=== PATIENT | female | born 1955 | race Caucasian/White ===

== ENCOUNTER 2019-04-24 08:04 | Emergency (ER) | payer OTHER ==
[~2019-04-24] VITALS: Ht 157.5 cm; Wt 122.5 kg
[2019-04-24] MEDS ORDERED: CARTIA XT240 MG PO (08:23)
[2019-04-24] MEDS ORDERED: GLIPIZIDE5 MG PO (08:23)
[2019-04-24] MEDS ORDERED: HYDROCHLOROTHIA25 MG PO (08:24)
[2019-04-24] MEDS ORDERED: LOSARTAN POTAS100 MG PO (08:24)
[2019-04-24] MEDS ORDERED: METFORMIN HCL500 M1 PO (08:24)
[2019-04-24] MEDS ORDERED: PROMETHAZINE HC25 M1 PO (10:50)
[2019-04-24] MEDS ORDERED: NORCO 10-325 T1 EACH PO (10:50)
[2019-04-24] MEDS ORDERED: CIPRO500 MG PO (10:50)
== END 2019-04-24 11:29 | disposition home or self-care (01) ==
LOC: ED 08:04
DX: N13.2 Hydronephrosis with renal and ureteral calculous obstruction (principal); N32.2 Vesical fistula, not elsewhere classified; K80.20 Calculus of gallbladder without cholecystitis without obstruction; I10 Essential (primary) hypertension; E11.9 Type 2 diabetes mellitus without complications; Z79.899 Other long term (current) drug therapy; Z79.84 Long term (current) use of oral hypoglycemic drugs
CPT/HCPCS: 74177; 80053; 81001; 85025; 96361; 99284-25; J1885; J2270; J2765; J7030; Q9967